=== PATIENT | female | born 1935 | race Caucasian/White ===

== ENCOUNTER → 2019-01-22 | Day surgery (SDC) | payer MEDICARE ==
[~2019-01-22] MED LIST: AMIODARONE HCL200 M1 PO; CIPRO500 MG PO; ISOSORBIDE MONO30 MG PO; LASIX40 MG PO; LEVOTHYROXINE50 MCG PO; LIDOCAINE HCL 2% LOCAL INJ 5 ML SDV VIAL INJ ONE; LISINOPRIL2.5 MG PO; METOPROLOL TART25 MG PO; PROPOFOL IV EMULSION 10 MG/ML 50 ML VIAL ONE; VITAMIN D31000 UNIT PO; WARFARIN SODIUM3 MG PO; Z.0.ATENOLOL25 MG PO; Z.0.LOVASTATIN20 MG PO; Z.0.PLAVIX75 MG PO; Z.0.WARFARIN SODIUM4 PO
[2019-01-22 09:38] LABS: INR 1.09; PROTHROMBIN TIME 14.6 seconds (11.9-14.5)
[2019-01-22 09:52] LABS: PARTIAL THROMBOPLASTIN TIME 25.8 seconds (23.8-35.5)
[2019-01-22 12:50] VITALS: BP 149/86
== END | disposition home or self-care (01) ==
LOC: OR 06:50
PROVIDERS: ATTEND Internal Medicine Gastroenterology
DX: Z12.11 Encounter for screening for malignant neoplasm of colon (principal); D49.0 Neoplasm of unspecified behavior of digestive system; D12.2 Benign neoplasm of ascending colon; D12.3 Benign neoplasm of transverse colon; D12.8 Benign neoplasm of rectum; K92.1 Melena; K59.00 Constipation, unspecified; I25.810 Atherosclerosis of coronary artery bypass graft(s) without angina pectoris; I48.91 Unspecified atrial fibrillation; E03.9 Hypothyroidism, unspecified; N18.9 Chronic kidney disease, unspecified; I25.2 Old myocardial infarction; J44.9 Chronic obstructive pulmonary disease, unspecified; R03.0 Elevated blood-pressure reading, without diagnosis of hypertension; R07.9 Chest pain, unspecified; Z88.6 Allergy status to analgesic agent; Z01.810 Encounter for preprocedural cardiovascular examination; Z79.01 Long term (current) use of anticoagulants; Z95.1 Presence of aortocoronary bypass graft; Z95.5 Presence of coronary angioplasty implant and graft
CPT/HCPCS: 36415; 45380; 45381; 45385; 85610; 85730; 93005; J2001; J2704; 45378